=== PATIENT | female | born 1950 | race Caucasian/White ===

== ENCOUNTER 2019-08-20 06:15 | Day surgery (SDC) | payer OTHER ==
[~2019-08-20] VITALS: Ht 165.1 cm; Wt 71.0 kg
[~2019-08-20 06:15] MED LIST: AMPDEX10CR PO; Calcium + Vita1 EACH PO; ESTR2 PO; METO10; OLME20 PO; RIZATRIPTAN10 MG; SERT25 PO
[2019-08-20] MEDS ORDERED: TIZA4 (06:56)
--- NOTE | 2019-08-20 08:17 | NUR ---
08/20/19 0817 Niya Chu 1 MG EPI ADDED TO FIRST BAG OF LR.
== END 2019-08-20 10:50 | disposition home or self-care (01) ==
LOC: ORSCSDS 06:15
PROVIDERS: Orthopaedic Surgery
PROC: 0PB94ZZ Excision of Right Clavicle, Percutaneous Endoscopic Approach (ICD-10-PCS; principal; 2019-08-20 07:30)
PROC: 0LQ14ZZ Repair Right Shoulder Tendon, Percutaneous Endoscopic Approach (ICD-10-PCS; principal; 2019-08-20 07:30)
PROC: 0RNJ4ZZ Release Right Shoulder Joint, Percutaneous Endoscopic Approach (ICD-10-PCS; principal; 2019-08-20 07:30)
DX: M75.111 Incomplete rotator cuff tear or rupture of right shoulder, not specified as traumatic (principal); M75.31 Calcific tendinitis of right shoulder; M75.41 Impingement syndrome of right shoulder; M19.011 Primary osteoarthritis, right shoulder; G47.33 Obstructive sleep apnea (adult) (pediatric); Z87.891 Personal history of nicotine dependence; Z79.899 Other long term (current) drug therapy; Z79.82 Long term (current) use of aspirin
CPT/HCPCS: J0171; J0690; J0735; J1100; J1885; J2250; J2405; J2704; J2795; J3010; J7120

== ENCOUNTER → 2020-01-11 | Outpatient (CLI) | payer OTHER ==
[~2020-01-11] MED LIST changes: +TIZA4
== END | disposition home or self-care (01) ==
LOC: PLD 15:20 → LAB SHORT 15:20
DX: M67.441 Ganglion, right hand (principal)
CPT/HCPCS: 88304

== ENCOUNTER 2023-04-25 09:30 | Emergency (ER) | payer OTHER ==
[~2023-04-25] VITALS: Ht 165.1 cm; Wt 79.4 kg
[2023-04-25 09:43] VITALS: BP 156/118
[2023-04-25] MEDS ORDERED: OLMESARTAN MEDO20 MG PO (09:47)
[2023-04-25] MEDS ORDERED: ROSUVASTATIN CA20 MG PO (09:47)
[2023-04-25] MEDS ORDERED: HYDR1TAB94 PO (11:35)
== END 2023-04-25 12:27 | disposition home or self-care (01) ==
LOC: ER 09:30
DX: S00.81XA Abrasion of other part of head, initial encounter (principal); S61.412A Laceration without foreign body of left hand, initial encounter; S80.211A Abrasion, right knee, initial encounter; S60.211A Contusion of right wrist, initial encounter; I12.9 Hypertensive chronic kidney disease with stage 1 through stage 4 chronic kidney disease, or unspecified chronic kidney disease; N18.30 Chronic kidney disease, stage 3 unspecified; E78.5 Hyperlipidemia, unspecified; W01.0XXA Fall on same level from slipping, tripping and stumbling without subsequent striking against object, initial encounter; Z88.8 Allergy status to other drugs, medicaments and biological substances; Z79.899 Other long term (current) drug therapy
CPT/HCPCS: 12002; 73110; 73130; 73562-RT; 99283-25; A9270

== ENCOUNTER → 2024-03-27 | Outpatient (CLI) | payer OTHER ==
[~2024-03-27] MED LIST changes: +HYDR1TAB94 PO; +OLMESARTAN MEDO20 MG PO; +ROSUVASTATIN CA20 MG PO
[2024-03-27 09:17] LABS: BASOPHILS ABSOLUTE AUTO 0.06 K/mm3 (0.00-0.23); BASOPHILS PERCENT AUTO 1 % (0-2); EOSINOPHILS ABSOLUTE AUTO 0.13 K/mm3 (0.00-0.68); EOSINOPHILS PERCENT AUTO 2 % (0-6); Hematocrit 41.8 % (33.0-51.0); Hemoglobin 13.2 g/dL (11.5-16.0); IMMATURE GRAN ABSOLUTE AUTO 0.01 K/mm3 (0.00-0.10); IMMATURE GRAN PERCENT AUTO 0 % (0-1); LYMPHOCYTES ABSOLUTE AUTO 1.36 K/mm3 (0.84-5.20); LYMPHOCYTES PERCENT AUTO 21 % (21-46); MONOCYTES ABSOLUTE AUTO 0.47 K/mm3 (0.16-1.47); MONOCYTES PERCENT AUTO 7 % (4-13); Mean Corpuscular HGB 29.3 pg (26.0-34.0); Mean Corpuscular HGB Conc 31.6 g/dL (31.5-36.5); Mean Corpuscular Volume 93 fL (80-100); Mean Platelet Volume 11.4 fL (9.1-12.4); NEUTROPHILS ABSOLUTE AUTO 4.47 K/mm3 (1.96-9.15); NEUTROPHILS PERCENT AUTO 69 % (41-73); Platelet Count 248 K/mm3 (150-400); RDW Coefficient Variation 13.2 % (11.7-14.2); RDW Standard Deviation 44.8 fL (35.1-46.3); Red Blood Cell Count 4.51 M/mm3 (3.80-5.20)
[2024-03-27 09:37] LABS: Albumin, Blood 3.8 g/dL (3.4-5.0); Bilirubin, Total 0.5 mg/dL (0.1-1.0); Bun/Creatinine Ratio 16.4 (12.0-20.0); Calcium, Blood 8.8 mg/dL (8.5-10.1); Creatinine, Blood 1.22 mg/dL (0.40-1.00); Potassium, Blood 4.3 mmol/L (3.5-5.5); Thyroid Stimulating Hormone 2.054 uIU/mL (0.360-4.800); Total Protein, Blood 7.8 g/dL (6.4-8.2)
== END | disposition home or self-care (01) ==
LOC: LAB 09:13 → LAB SHORT 09:13
PROVIDERS: Physician Assistant
DX: R53.83 Other fatigue (principal); R82.81 Pyuria
CPT/HCPCS: 80053; 84443; 85025; 87086

== ENCOUNTER → 2024-07-22 | Outpatient (CLI) | payer OTHER | LOC: LAB 11:19 → LAB SHORT 11:19 | DX: N39.0 Urinary tract infection, site not specified (principal) | CPT/HCPCS: 87086 ==

== ENCOUNTER → 2024-09-24 | Outpatient (CLI) | payer OTHER ==
[2024-09-24 21:04] LABS: Bun/Creatinine Ratio 17.7 (12.0-20.0); Calcium, Blood 8.3 mg/dL (8.5-10.1); Creatinine, Blood 1.3 mg/dL (0.40-1.00); Potassium, Blood 3.6 mmol/L (3.5-5.5)
== END ==
LOC: LAB SHORT 15:07 → LAB 15:07
PROVIDERS: Physician Assistant
DX: L29.9 Pruritus, unspecified (principal)
CPT/HCPCS: 80048

== ENCOUNTER → 2024-10-21 | Outpatient (CLI) | payer OTHER ==
[2024-10-22 12:37] LABS: Microalbumin, Urine Quant. <5.000 mg/L (0.000-20.000); Protein, Urine Quantitative <5.0 mg/dL (0.0-11.9)
== END | disposition home or self-care (01) ==
LOC: LAB 07:00 → LAB SHORT 07:00 → EDSTATUS 09-26 10:40 → LAB FUT 09-26 10:40
PROVIDERS: Internal Medicine Nephrology
DX: N18.30 Chronic kidney disease, stage 3 unspecified (principal); D63.1 Anemia in chronic kidney disease; E83.51 Hypocalcemia; N25.81 Secondary hyperparathyroidism of renal origin; E55.9 Vitamin D deficiency, unspecified; E78.00 Pure hypercholesterolemia, unspecified; G60.9 Hereditary and idiopathic neuropathy, unspecified; D51.8 Other vitamin B12 deficiency anemias; D52.8 Other folate deficiency anemias; D50.9 Iron deficiency anemia, unspecified; R76.9 Abnormal immunological finding in serum, unspecified; R94.5 Abnormal results of liver function studies; R94.6 Abnormal results of thyroid function studies
CPT/HCPCS: 81050; 82043; 82570; 84156

== ENCOUNTER 2025-02-27 07:45 | Day surgery (SDC) | payer OTHER ==
[~2025-02-27] VITALS: Ht 165.1 cm; Wt 80.1 kg
[2025-02-27] VITALS (14 sets, daily range): BP systolic 117–165; BP diastolic 60–98
[~2025-02-27 07:45] MED LIST changes: +METO25ER PO
--- NOTE | 2025-02-27 08:20 | NUR ---
Ambulatory in Day Surgery. History, Chart, Medications and Allergies reviewed before start of procedure. Lungs clear T/O to Auscultation. Patient confirms NPO status and agrees with scheduled surgery. Pre-Op teaching done. Pt verbalizes understanding. Patient States Post-Procedure ride home has been arranged.
--- NOTE | 2025-02-27 08:27 | NUR ---
02/27/25 0827 Bia Kumar History, Chart, Medications and Allergies reviewed before start of procedure. 3-LEAD EKG REVIEWED WITH PHYSICIAN PRIOR TO START OF PROCEDURE. MONITOR INTACT WITH CONTINUOUS PULSE OXIMETRY, CONTINUOUS END TITAL CO2, 3-LEAD EKG AND INTERMITTENT BLOOD PRESSURE. O2 VIA POM INTACT THROUGHOUT SEDATION/PROCEDURE. PATIENT DETERMINED TO BE ASA APPROPRIATE FOR PROPOFOL SEDATION PRIOR TO START OF PROCEDURE BY .
--- NOTE | 2025-02-27 09:29 | NUR ---
REPORT RECEIVED FROM COREY DAVIS. VSS. PT ON RA. PT A&OX4. PT ABLE TO REPOSITION SELF IN BED. PT REQUESTING PO FLUIDS AND TOLERATING THEM WELL. PT DENIES PAIN, NAUSEA OR OTHER DISCOMFORTS. PT DAUGHTER AT BEDSIDE.
== END 2025-02-27 09:46 | disposition home or self-care (01) ==
LOC: ORSCMMR 07:45 → ORD 09:00 → ORSCMMR 09:00
PROVIDERS: Internal Medicine Gastroenterology
PROC: 0DBN8ZX Excision of Sigmoid Colon, Via Natural or Artificial Opening Endoscopic, Diagnostic (ICD-10-PCS; principal; 2025-02-27 09:00)
PROC: 0DBM8ZX Excision of Descending Colon, Via Natural or Artificial Opening Endoscopic, Diagnostic (ICD-10-PCS; principal; 2025-02-27 09:00)
DX: Z12.11 Encounter for screening for malignant neoplasm of colon (principal); K63.5 Polyp of colon; K57.30 Diverticulosis of large intestine without perforation or abscess without bleeding; G47.30 Sleep apnea, unspecified; F98.8 Other specified behavioral and emotional disorders with onset usually occurring in childhood and adolescence; I10 Essential (primary) hypertension; Z79.899 Other long term (current) drug therapy
CPT/HCPCS: 88305; J2704; J7120

== ENCOUNTER 2025-03-04 06:12 | Day surgery (SDC) | payer OTHER ==
[~2025-03-04] VITALS: Ht 165.1 cm; Wt 79.5 kg
[2025-03-04] MEDS ORDERED: CeFAZolin Sodium 2,000 MG VIAL ONE (06:21)
[2025-03-04] MEDS ORDERED: Bupivacaine 0.5% W/EPI 1:200000 SDV 30 ML Vial ONE (07:12)
[2025-03-04] MEDS ORDERED: FentaNYL Citrate 50 MCG/ML 2 ML Injection ONE ×3 (07:31→09:16)
[2025-03-04] MEDS ORDERED: Ondansetron HCl 2 MG / ML 2ML Vial ONE (07:37)
[2025-03-04] MEDS ORDERED: Dexamethasone Sod Phos 10 MG/ML 1ML VIAL ONE (07:37)
[2025-03-04] MEDS ORDERED: Midazolam HCl 1MG / ML 2ML Vial ONE (08:11)
[2025-03-04] MEDS ORDERED: Sugammadex Sodium 200 MG/2ML SDV (100 MG/ML) ONE (08:49)
[2025-03-04] MEDS ORDERED: Rocuronium Bromide 10 MG/ML 5ML Injection IV ONE (08:57)
[2025-03-04] MEDS ORDERED: Phenylephrine HCl 100 MCG/ML-NS 10MLSYR (1MG/10ML) ONE (09:35)
[2025-03-04] MEDS ORDERED: HYDROmorphone HCl/Pf 1MG SYR ONE (09:55)
[2025-03-04] MEDS ORDERED: OxyCODONE 5 mg/Acetamin 325 mg TABLET ONE (09:58)
[2025-03-04 10:11] VITALS: BP 140/86
--- NOTE | 2025-03-04 10:55 | NUR ---
03/04/25 1055 Guillermo Bryson PT REPORTS MANAGEABLE LEVEL OF PAIN. PT AGREEABLE TO D/C HOME
== END 2025-03-04 10:54 | disposition home or self-care (01) ==
LOC: ORSCSDS 06:12
PROVIDERS: Orthopaedic Surgery
PROC: 0RQT0ZZ Repair Left Carpometacarpal Joint, Open Approach (ICD-10-PCS; principal; 2025-03-04 07:30)
DX: M18.12 Unilateral primary osteoarthritis of first carpometacarpal joint, left hand (principal); I12.9 Hypertensive chronic kidney disease with stage 1 through stage 4 chronic kidney disease, or unspecified chronic kidney disease; N18.9 Chronic kidney disease, unspecified; G47.33 Obstructive sleep apnea (adult) (pediatric); Z79.899 Other long term (current) drug therapy
CPT/HCPCS: A9270; J0690; J1100; J1171; J2250; J2371; J2405; J2704; J3010; J7120